=== PATIENT | male | born 1940 | race Caucasian/White ===

== ENCOUNTER → 2018-06-24 | Outpatient (CLI) | payer MEDICARE, BC ==
[~2018-06-24] MED LIST: ASPIR 8181 MG; ATENOLOL50 MG; FLOMAX0.4 MG; GABAPENTIN300 MG; KLOR-CON 1010 MEQ; LASIX40 MG; LIPITOR40 MG; MOBIC7.5 MG; OMEPRAZOLE20 MG; PLAVIX75 MG; QUALAQUIN324 MG; TRICOR48 MG; ZOLOFT50 MG
--- NOTE | 2018-06-24 13:27 | Diagnostic Imaging Report ---
PROCEDURE: RENAL DOPPLER ULTRASOUND COMPARISON:None. INDICATIONS:CKD STAGE 3 FINDINGS: Limited exam secondary to body habitus. Multiple sagittal and axial images of the right and left kidneys were obtained. RIGHT KIDNEY: The right kidney measures 11.5 x 6.3 x 5.8 cm. The cortical thickness is 1.9 cm. The right kidney has normal echogenicity. There are no masses, hydronephrosis or calculi. The highest right main renal artery PSV is 120 cm/sec. The highest right hilar artery PSV is 132cm/sec. LEFT KIDNEY: The left kidney measures 9.1 x 4.9 x 3.6 cm. The cortical thickness is 1.7 cm. The left kidney has increased echogenicity. There are no masses, hydronephrosis or calculi. The highest left main renal artery PSV is 128 cm/sec. The highest left hilar artery PSV is 44 cm/sec. The abdominal aorta PSV is 41.6 cm/sec. The right renal artery/aorta ratio is 2.8. The left renal artery/aorta ratio is 3.1. There is delayed systolic upstroke in the segmental artery waveforms. The right and left renal veins are patent. The bladder is unremarkable. Right ureteral jet noted. Left ureteral jet not visualized. CONCLUSION: 1. Increased left renal echogenicity suggestive medical renal disease. 2. Elevated left renal artery/aorta ratio and delayed systolic upstroke in the segmental arteries may reflect a degree of stenosis. Dictated by: Vincent Aguayo M.D. on 06/24/2018 at 13:32 Electronically approved by: Vincent Aguayo M.D. on 06/24/2018 at 13:32
--- NOTE | 2018-06-24 13:28 | Diagnostic Imaging Report ---
PROCEDURE:US RETROPERITONEAL ( KIDNEY ). COMPARISON:None. INDICATIONS:CKD STAGE 3 TECHNIQUE:Ultrasound examination was performed of the kidneys and bladder. FINDINGS: Please refer to same day US renal Doppler for full report. CONCLUSION: Please refer to same day US renal Doppler for full report. DICTATED BY: LISA HINES M.D. ON 06/24/2018 AT 13:32 ELECTRONICALLY APPROVED BY: LISA HINES M.D. ON 06/24/2018 AT 13:32
== END ==
LOC: US 10:55
PROVIDERS: ATTEND Internal Medicine Nephrology
DX: N18.3 Chronic kidney disease, stage 3 (moderate) (principal)
CPT/HCPCS: 76770; 93976

== ENCOUNTER → 2021-05-16 | Outpatient (CLI) | payer MEDICARE, BC | LOC: RAD 13:05 | PROVIDERS: ATTEND Family Medicine Adult Medicine | DX: I87.2 Venous insufficiency (chronic) (peripheral) (principal) | CPT/HCPCS: 93970 ==

== ENCOUNTER 2021-05-19 09:26 | Outpatient (RCR) | payer MEDICARE, BC ==
[~2021-05-19 09:26] MED LIST changes: +FLUOCINONIDE 0.05% 1 EA/15 GM TUBE ONE; +LIDOCAINE VISC 2% SOLN 15 ML UDC ONE; +LIDOCAINE/PRILOCAINE 2.5-2.5% KIT ONE; +MINERAL OIL/PETROLAT/GLYCERI 6OZ BTL ONE; +TRIAMCINOLONE ACET 0.1% CREAM 15 GM TUBE ONE
== END 2021-05-21 ==
LOC: WCC 09:26
PROVIDERS: ATTEND Family Medicine Adult Medicine
DX: E11.22 Type 2 diabetes mellitus with diabetic chronic kidney disease (principal); E11.628 Type 2 diabetes mellitus with other skin complications; S81.002A Unspecified open wound, left knee, initial encounter; L97.821 Non-pressure chronic ulcer of other part of left lower leg limited to breakdown of skin; L97.811 Non-pressure chronic ulcer of other part of right lower leg limited to breakdown of skin; I83.11 Varicose veins of right lower extremity with inflammation; I83.12 Varicose veins of left lower extremity with inflammation; I89.0 Lymphedema, not elsewhere classified; R60.0 Localized edema; S80.821A Blister (nonthermal), right lower leg, initial encounter; N18.30 Chronic kidney disease, stage 3 unspecified; I10 Essential (primary) hypertension; G99.0 Autonomic neuropathy in diseases classified elsewhere; I46.2 Cardiac arrest due to underlying cardiac condition; I50.32 Chronic diastolic (congestive) heart failure; E03.9 Hypothyroidism, unspecified; J44.9 Chronic obstructive pulmonary disease, unspecified; G47.33 Obstructive sleep apnea (adult) (pediatric); E66.3 Overweight; X58.XXXA Exposure to other specified factors, initial encounter

== ENCOUNTER 2021-06-20 15:34 | Outpatient (RCR) | payer MEDICARE, BC ==
[~2021-06-20 15:34] MED LIST changes: -LIDOCAINE/PRILOCAINE 2.5-2.5% KIT ONE; -TRIAMCINOLONE ACET 0.1% CREAM 15 GM TUBE ONE
== END 2021-06-21 ==
LOC: WCC 15:34
PROVIDERS: ATTEND Family Medicine Adult Medicine
DX: E11.22 Type 2 diabetes mellitus with diabetic chronic kidney disease (principal); E11.628 Type 2 diabetes mellitus with other skin complications; I83.11 Varicose veins of right lower extremity with inflammation; I83.12 Varicose veins of left lower extremity with inflammation; I89.0 Lymphedema, not elsewhere classified; R60.0 Localized edema; L97.811 Non-pressure chronic ulcer of other part of right lower leg limited to breakdown of skin; L97.221 Non-pressure chronic ulcer of left calf limited to breakdown of skin; L97.821 Non-pressure chronic ulcer of other part of left lower leg limited to breakdown of skin; N18.30 Chronic kidney disease, stage 3 unspecified; I10 Essential (primary) hypertension; G99.0 Autonomic neuropathy in diseases classified elsewhere; I46.2 Cardiac arrest due to underlying cardiac condition; I50.32 Chronic diastolic (congestive) heart failure; G47.33 Obstructive sleep apnea (adult) (pediatric); J44.9 Chronic obstructive pulmonary disease, unspecified; E03.9 Hypothyroidism, unspecified; E66.3 Overweight; X58.XXXA Exposure to other specified factors, initial encounter
CPT/HCPCS: 36415; 82947; 82948

== ENCOUNTER 2021-06-24 10:43 | Outpatient (RCR) | payer MEDICARE, BC ==
[~2021-06-24 10:43] MED LIST changes: -FLUOCINONIDE 0.05% 1 EA/15 GM TUBE ONE; -LIDOCAINE VISC 2% SOLN 15 ML UDC ONE; -MINERAL OIL/PETROLAT/GLYCERI 6OZ BTL ONE
[2021-06-24] MEDS ORDERED: LIDOCAINE/PRILOCAINE 2.5-2.5% KIT ONE (12:52)
[2021-06-24] MEDS ORDERED: MINERAL OIL/PETROLAT/GLYCERI 2OZ CRM ONE (12:52)
== END 2021-07-22 ==
LOC: WCC 10:43
PROVIDERS: ATTEND Family Medicine Adult Medicine
DX: E11.22 Type 2 diabetes mellitus with diabetic chronic kidney disease (principal); E11.628 Type 2 diabetes mellitus with other skin complications; L97.821 Non-pressure chronic ulcer of other part of left lower leg limited to breakdown of skin; S81.801A Unspecified open wound, right lower leg, initial encounter; I83.12 Varicose veins of left lower extremity with inflammation; I83.11 Varicose veins of right lower extremity with inflammation; I89.0 Lymphedema, not elsewhere classified; R60.0 Localized edema; N18.30 Chronic kidney disease, stage 3 unspecified; I10 Essential (primary) hypertension; G99.0 Autonomic neuropathy in diseases classified elsewhere; E03.9 Hypothyroidism, unspecified; E66.3 Overweight; G47.33 Obstructive sleep apnea (adult) (pediatric); I46.2 Cardiac arrest due to underlying cardiac condition; I50.32 Chronic diastolic (congestive) heart failure; J44.9 Chronic obstructive pulmonary disease, unspecified; W45.8XXA Other foreign body or object entering through skin, initial encounter; X58.XXXA Exposure to other specified factors, initial encounter

== ENCOUNTER 2022-10-30 09:26 | Inpatient (IN) | payer MEDICARE, BC ==
[~2022-10-30] VITALS: Ht 170.2 cm; Wt 122.5 kg
[~2022-10-30 09:26] MED LIST changes: -KLOR-CON 1010 MEQ; +KLOR-CON 1010 MEQ PO; -LASIX40 MG; +LASIX40 MG PO; -LIPITOR40 MG; +LIPITOR40 MG PO; -PLAVIX75 MG; +PLAVIX75 MG PO; -ZOLOFT50 MG; +ZOLOFT50 MG PO
[2022-10-30 10:14] LABS: BASOPHILS % 0.5 % (0.0-1.0); EOSINOPHILS # (AUTO) 0.2 (0.0-0.4); HEMATOCRIT 27.8 % (38.2-49.6); HEMOGLOBIN 9.5 g/dL (14.0-18.0); LYMPHOCYTES # (AUTO) 1.4 (1.0-3.2); MEAN CORPUSCULAR HEMOGLOBIN 34.9 pg (28-32); MEAN CORPUSCULAR HGB CONC 34.2 g/dL (31-35); MEAN CORPUSCULAR VOLUME 102.2 fL (81-99); MONOCYTES # (AUTO) 0.5 (0.2-0.8); MONOCYTES % 8.6 % (4.4-11.3); NEUTROPHILS # (AUTO) 3.5 (2.1-6.9); PLATELET COUNT 207 x10e3/uL (140-360); RED BLOOD COUNT 2.72 x10e6/uL (4.3-5.7); RED CELL DISTRIBUTION WIDTH 15.6 % (11.7-14.4)
[2022-10-30 10:25] LABS: INR 1.13; PROTHROMBIN TIME 14.7 seconds (11.9-14.5)
[2022-10-30 10:36] LABS: ALBUMIN 3.1 g/dL (3.5-5.0); ALBUMIN/GLOBULIN RATIO 0.9 (0.8-2.0); ANION GAP 15.8 mmol/L (8-16); CALCIUM 8.7 mg/dL (8.4-10.2); CREATININE, SERUM 1.94 mg/dL (0.72-1.25); MAGNESIUM 1.8 MG/DL (1.3-2.1); POTASSIUM 3.8 mmol/L (3.5-5.1)
[2022-10-30 10:42] LABS: CREATINE KINASE MB 2.4 ng/mL (0-5.0)
[2022-10-30] MEDS ORDERED: Vancomycin IV 1 GM in SODIUM CHLORIDE 0.9% 250ML 250 ML IV ONE (11:00)
[2022-10-30] MEDS ORDERED: ONDANSETRON HCL INJ 2MG/ML 2ML 2 MG/ML VIAL IV PRN (11:45)
[2022-10-30] MEDS ORDERED: FUROSEMIDE INJ 10 MG/ML 4 ML VIAL IV ONE (12:00)
[2022-10-30 12:45] VITALS: BP 152/54
[2022-10-30 15:37] VITALS: BP 130/55
[2022-10-30] MEDS ORDERED: ALPRAZOLAM0.5 MG PO (15:57)
[2022-10-30] MEDS ORDERED: TOUJEO MAX300 UNIT/1 (15:57)
[2022-10-30] MEDS ORDERED: SERTRALINE HCL100 MG PO (15:57)
[2022-10-30] MEDS ORDERED: PROTONIX20 MG PO (15:57)
[2022-10-30] MEDS ORDERED: MIRAPEX0.25 MG PO (15:57)
[2022-10-30] MEDS ORDERED: FINASTERIDE5 MG PO (15:57)
[2022-10-30] MEDS ORDERED: METOPROLOL SUCC50 MG PO (15:57)
[2022-10-30] MEDS ORDERED: AMIODARONE HCL200 MG PO (15:57)
[2022-10-30] MEDS ORDERED: LEVOTHYROXINE50 MCG PO (15:57)
[2022-10-30] MEDS ORDERED: [UNRECOGNIZED DRUG - OTHER] (15:57)
[2022-10-30] MEDS ORDERED: SYMBICORT 16010.2 GM INH (15:57)
[2022-10-30] MEDS ORDERED: ENTRESTO 24 MG1 EACH PO (15:57)
[2022-10-30] MEDS ORDERED: COLLAGENASE 5 GM TUBE TP SCH (16:30)
[2022-10-30] MEDS ORDERED: DEXTROSE 50% SYRINGE 50 ML IV PRN (16:30)
[2022-10-30] MEDS: INSULIN LISPRO 100 UNIT/1 ML 3ML VIAL SQ SCH ×3 (17:00→21:00)
[2022-10-30] MEDS ORDERED: SODIUM CHLORIDE 0.9% 250ML 250 ML ONE (17:39)
[2022-10-30 18:55] LABS: CREATINE KINASE MB 2.2 ng/mL (0-5.0)
[2022-10-30] MEDS: BUDESONIDE/FORMOTEROL 160/4.5MCG INHALER INH SCH (19:00)
[2022-10-30 19:15] VITALS: BP 128/88
[2022-10-30] MEDS ORDERED: POTASSIUM CHLORIDE 20 MEQ PO SCH (21:00)
[2022-10-30] MEDS ORDERED: NON-FORMULARY MEDICATION (Atorvastatin Calcium (Lipitor) 40 MG) PO SCH (21:00)
[2022-10-30] MEDS: PRAMIPEXOLE DIHYDROCHLORIDE 0.25 MG TAB PO SCH (22:06)
[2022-10-30] MEDS: ATORVASTATIN 40 MG TAB PO SCH (22:07)
[2022-10-30] MEDS: POTASSIUM CHLORIDE 20 MEQ TAB CR PO SCH (22:07)
[2022-10-30] MEDS: VALSARTAN/SACUBITRIL 24MG/26MG 1 EA TAB PO SCH (22:08)
[2022-10-30] MEDS: ALPRAZOLAM 0.5 MG TAB PO PRN (22:08)
[2022-10-30] MEDS: COLLAGENASE 5 GM TUBE TP SCH (22:27)
[2022-10-31] VITALS (9 sets, daily range): BP systolic 111–128; BP diastolic 46–83
[2022-10-31] MEDS: LEVOTHYROXINE SODIUM 50 MCG TAB PO SCH (05:49)
[2022-10-31 07:08] LABS: BASOPHILS % 0.6 % (0.0-1.0); EOSINOPHILS # (AUTO) 0.2 (0.0-0.4); EOSINOPHILS % 4.5 % (0.0-6.0); HEMATOCRIT 27.7 % (38.2-49.6); HEMOGLOBIN 9.5 g/dL (14.0-18.0); LYMPHOCYTES # (AUTO) 1.3 (1.0-3.2); LYMPHOCYTES % 23.5 % (18.0-39.1); MEAN CORPUSCULAR HEMOGLOBIN 35.1 pg (28-32); MEAN CORPUSCULAR HGB CONC 34.3 g/dL (31-35); MEAN CORPUSCULAR VOLUME 102.2 fL (81-99); MONOCYTES # (AUTO) 0.5 (0.2-0.8); MONOCYTES % 9.8 % (4.4-11.3); NEUTROPHILS # (AUTO) 3.2 (2.1-6.9); NEUTROPHILS % 60.7 % (38.7-80.0); PLATELET COUNT 202 x10e3/uL (140-360); RED BLOOD COUNT 2.71 x10e6/uL (4.3-5.7); RED CELL DISTRIBUTION WIDTH 15.6 % (11.7-14.4)
[2022-10-31] MEDS: INSULIN LISPRO 100 UNIT/1 ML 3ML VIAL SQ SCH ×5 (07:30→19:58)
[2022-10-31 07:36] LABS: ALBUMIN 2.7 g/dL (3.5-5.0); ALBUMIN/GLOBULIN RATIO 0.8 (0.8-2.0); ANION GAP 13.5 mmol/L (8-16); CALCIUM 8.7 mg/dL (8.4-10.2); CREATININE, SERUM 1.73 mg/dL (0.72-1.25); POTASSIUM 3.5 mmol/L (3.5-5.1)
[2022-10-31 08:11] LABS: CREATINE KINASE MB 1.5 ng/mL (0-5.0)
[2022-10-31] MEDS ORDERED: SERTRALINE HCL 50 MG TAB PO SCH (09:00)
[2022-10-31] MEDS ORDERED: NON-FORMULARY MEDICATION (Sacubitril/Valsartan (Entresto 24 mg-26 mg Tablet) 1 TAB) PO SCH (09:00)
[2022-10-31] MEDS: Vancomycin IV 1 GM in SODIUM CHLORIDE 0.9% 250ML 250 ML IV SCH (09:09)
[2022-10-31] MEDS: SERTRALINE HCL 100 MG TAB PO SCH (09:09)
[2022-10-31] MEDS: PANTOPRAZOLE SOD 40 MG TABEC PO SCH (09:10)
[2022-10-31] MEDS: CLOPIDOGREL BISULFATE 75 MG TAB PO SCH (09:10)
[2022-10-31] MEDS: METOPROLOL SUCCINATE 50 MG TAB XL PO SCH ×2 (09:10→16:36)
[2022-10-31] MEDS: VALSARTAN/SACUBITRIL 24MG/26MG 1 EA TAB PO SCH ×2 (09:10→19:58)
[2022-10-31] MEDS: FINASTERIDE 5 MG TAB PO SCH (09:10)
[2022-10-31] MEDS: AMIODARONE HCL 200 MG TAB PO SCH (09:10)
[2022-10-31] MEDS: FUROSEMIDE 40 MG TAB PO SCH ×2 (09:10→16:36)
[2022-10-31] MEDS: BUDESONIDE/FORMOTEROL 160/4.5MCG INHALER INH SCH ×2 (10:30→19:50)
[2022-10-31] MEDS: COLLAGENASE 5 GM TUBE TP SCH (11:29)
[2022-10-31 14:50] LABS: CREATINE KINASE MB 1.3 ng/mL (0-5.0)
[2022-10-31] MEDS: PRAMIPEXOLE DIHYDROCHLORIDE 0.25 MG TAB PO SCH (19:58)
[2022-10-31] MEDS: POTASSIUM CHLORIDE 20 MEQ TAB CR PO SCH (19:59)
[2022-10-31] MEDS: Morphine 2mg Syringe 2 MG/ML SYR IV PRN (20:04)
[2022-10-31] MEDS: ATORVASTATIN 40 MG TAB PO SCH (20:10)
[2022-10-31] MEDS: ALPRAZOLAM 0.5 MG TAB PO PRN (20:10)
[2022-11-01] VITALS (9 sets, daily range): BP systolic 120–138; BP diastolic 49–98
[2022-11-01] MEDS: Morphine 2mg Syringe 2 MG/ML SYR IV PRN (04:46)
[2022-11-01] MEDS: LEVOTHYROXINE SODIUM 50 MCG TAB PO SCH (05:56)
[2022-11-01 05:57] LABS: ANION GAP 18.3 mmol/L (8-16); CALCIUM 9.3 mg/dL (8.4-10.2); CREATININE, SERUM 1.73 mg/dL (0.72-1.25); POTASSIUM 4.3 mmol/L (3.5-5.1)
[2022-11-01] MEDS: PANTOPRAZOLE SOD 40 MG TABEC PO SCH (08:12)
[2022-11-01] MEDS: FINASTERIDE 5 MG TAB PO SCH (08:13)
[2022-11-01] MEDS: CLOPIDOGREL BISULFATE 75 MG TAB PO SCH (08:13)
[2022-11-01] MEDS: FUROSEMIDE 40 MG TAB PO SCH ×2 (08:13→16:50)
[2022-11-01] MEDS: SERTRALINE HCL 100 MG TAB PO SCH (08:13)
[2022-11-01] MEDS: AMIODARONE HCL 200 MG TAB PO SCH (08:13)
[2022-11-01] MEDS: VALSARTAN/SACUBITRIL 24MG/26MG 1 EA TAB PO SCH ×2 (08:13→20:17)
[2022-11-01] MEDS: METOPROLOL SUCCINATE 50 MG TAB XL PO SCH ×2 (08:14→16:51)
[2022-11-01] MEDS: INSULIN LISPRO 100 UNIT/1 ML 3ML VIAL SQ SCH ×4 (08:16→20:16)
[2022-11-01] MEDS: Vancomycin IV 1 GM in SODIUM CHLORIDE 0.9% 250ML 250 ML IV SCH ×2 (10:43→10:48)
[2022-11-01] MEDS ORDERED: METHYLPREDNISOLONE SOD SUCC 40 MG/ML VIAL 1ML IV NR (10:45)
[2022-11-01] MEDS: HYDROCODONE/APAP 5MG-325MG TAB PO PRN ×2 (10:46→18:11)
[2022-11-01] MEDS: CEFTRIAXONE 2 GM in SODIUM CHLORIDE 0.9% 100 ML IV SCH (10:56)
[2022-11-01] MEDS: BUDESONIDE/FORMOTEROL 160/4.5MCG INHALER INH SCH ×2 (11:03→19:30)
[2022-11-01] MEDS: COLLAGENASE 5 GM TUBE TP SCH (11:52)
[2022-11-01] MEDS: ATORVASTATIN 40 MG TAB PO SCH (20:17)
[2022-11-01] MEDS: POTASSIUM CHLORIDE 20 MEQ TAB CR PO SCH (20:17)
[2022-11-01] MEDS: PRAMIPEXOLE DIHYDROCHLORIDE 0.25 MG TAB PO SCH (20:17)
[2022-11-01] MEDS: ALPRAZOLAM 0.5 MG TAB PO PRN (23:46)
[2022-11-02] VITALS (8 sets, daily range): BP systolic 111–140; BP diastolic 50–76
[2022-11-02 05:52] LABS: BASOPHILS % 0.1 % (0.0-1.0); HEMATOCRIT 29.1 % (38.2-49.6); HEMOGLOBIN 9.9 g/dL (14.0-18.0); LYMPHOCYTES # (AUTO) 0.9 (1.0-3.2); LYMPHOCYTES % 11.3 % (18.0-39.1); MEAN CORPUSCULAR HEMOGLOBIN 34.9 pg (28-32); MEAN CORPUSCULAR VOLUME 102.5 fL (81-99); MONOCYTES # (AUTO) 0.4 (0.2-0.8); MONOCYTES % 5.1 % (4.4-11.3); NEUTROPHILS # (AUTO) 6.7 (2.1-6.9); PLATELET COUNT 206 x10e3/uL (140-360); RED BLOOD COUNT 2.84 x10e6/uL (4.3-5.7); RED CELL DISTRIBUTION WIDTH 15.6 % (11.7-14.4)
[2022-11-02] MEDS: LEVOTHYROXINE SODIUM 50 MCG TAB PO SCH (06:17)
[2022-11-02 06:18] LABS: ALBUMIN 2.9 g/dL (3.5-5.0); ALBUMIN/GLOBULIN RATIO 0.7 (0.8-2.0); ANION GAP 16.4 mmol/L (8-16); CALCIUM 8.9 mg/dL (8.4-10.2); CREATININE, SERUM 1.66 mg/dL (0.72-1.25); POTASSIUM 4.4 mmol/L (3.5-5.1)
[2022-11-02] MEDS: INSULIN LISPRO 100 UNIT/1 ML 3ML VIAL SQ SCH ×4 (07:30→21:38)
[2022-11-02] MEDS: CEFTRIAXONE 2 GM in SODIUM CHLORIDE 0.9% 100 ML IV SCH (08:16)
[2022-11-02] MEDS: Vancomycin IV 1 GM in SODIUM CHLORIDE 0.9% 250ML 250 ML IV SCH (08:16)
[2022-11-02] MEDS: FINASTERIDE 5 MG TAB PO SCH (08:17)
[2022-11-02] MEDS: PANTOPRAZOLE SOD 40 MG TABEC PO SCH (08:17)
[2022-11-02] MEDS: SERTRALINE HCL 100 MG TAB PO SCH (08:17)
[2022-11-02] MEDS: AMIODARONE HCL 200 MG TAB PO SCH (08:17)
[2022-11-02] MEDS: CLOPIDOGREL BISULFATE 75 MG TAB PO SCH (08:17)
[2022-11-02] MEDS: FUROSEMIDE 40 MG TAB PO SCH ×2 (08:17→16:39)
[2022-11-02] MEDS: METOPROLOL SUCCINATE 50 MG TAB XL PO SCH ×2 (08:19→16:40)
[2022-11-02] MEDS: VALSARTAN/SACUBITRIL 24MG/26MG 1 EA TAB PO SCH ×2 (08:19→21:32)
[2022-11-02] MEDS: COLLAGENASE 5 GM TUBE TP SCH (09:00)
[2022-11-02] MEDS ORDERED: ONDANSETRON HCL 4 MG ORAL DISINTEGRATING TAB PO PRN (10:45)
[2022-11-02] MEDS: BUDESONIDE/FORMOTEROL 160/4.5MCG INHALER INH SCH (19:20)
[2022-11-02] MEDS: HYDROCODONE/APAP 5MG-325MG TAB PO PRN (20:23)
[2022-11-02] MEDS: ATORVASTATIN 40 MG TAB PO SCH (21:32)
[2022-11-02] MEDS: PRAMIPEXOLE DIHYDROCHLORIDE 0.25 MG TAB PO SCH (21:34)
[2022-11-02] MEDS: POTASSIUM CHLORIDE 20 MEQ TAB CR PO SCH (21:34)
[2022-11-02] MEDS: ALPRAZOLAM 0.5 MG TAB PO PRN (23:00)
[2022-11-03] VITALS (8 sets, daily range): BP systolic 125–138; BP diastolic 48–68
[2022-11-03] MEDS: LEVOTHYROXINE SODIUM 50 MCG TAB PO SCH (05:18)
[2022-11-03] MEDS: BUDESONIDE/FORMOTEROL 160/4.5MCG INHALER INH SCH ×2 (06:22→19:40)
[2022-11-03] MEDS: PANTOPRAZOLE SOD 40 MG TABEC PO SCH (08:30)
[2022-11-03] MEDS: INSULIN LISPRO 100 UNIT/1 ML 3ML VIAL SQ SCH ×4 (08:30→21:33)
[2022-11-03] MEDS: METOPROLOL SUCCINATE 50 MG TAB XL PO SCH ×2 (09:00→17:20)
[2022-11-03] MEDS: CEFTRIAXONE 2 GM in SODIUM CHLORIDE 0.9% 100 ML IV SCH (10:00)
[2022-11-03] MEDS: COLLAGENASE 5 GM TUBE TP SCH (10:00)
[2022-11-03] MEDS: VALSARTAN/SACUBITRIL 24MG/26MG 1 EA TAB PO SCH ×2 (10:00→21:27)
[2022-11-03] MEDS: FUROSEMIDE 40 MG TAB PO SCH ×2 (10:01→17:20)
[2022-11-03] MEDS: FINASTERIDE 5 MG TAB PO SCH (10:01)
[2022-11-03] MEDS: SERTRALINE HCL 100 MG TAB PO SCH (10:01)
[2022-11-03] MEDS: AMIODARONE HCL 200 MG TAB PO SCH (10:01)
[2022-11-03] MEDS: CLOPIDOGREL BISULFATE 75 MG TAB PO SCH (10:01)
[2022-11-03] MEDS: Vancomycin IV 1 GM in SODIUM CHLORIDE 0.9% 250ML 250 ML IV SCH (13:08)
[2022-11-03] MEDS: PRAMIPEXOLE DIHYDROCHLORIDE 0.25 MG TAB PO SCH (21:27)
[2022-11-03] MEDS: ATORVASTATIN 40 MG TAB PO SCH (21:27)
[2022-11-03] MEDS: POTASSIUM CHLORIDE 20 MEQ TAB CR PO SCH (21:28)
[2022-11-03] MEDS ORDERED: DIPHENOXYLATE/ATROPINE TAB PO ONE (22:30)
[2022-11-04] VITALS (9 sets, daily range): BP systolic 125–135; BP diastolic 47–95
[2022-11-04] MEDS: ALPRAZOLAM 0.5 MG TAB PO PRN (00:09)
[2022-11-04] MEDS: LEVOTHYROXINE SODIUM 50 MCG TAB PO SCH (05:28)
[2022-11-04] MEDS: BUDESONIDE/FORMOTEROL 160/4.5MCG INHALER INH SCH ×3 (08:56→19:25)
[2022-11-04] MEDS: CHOLESTYRAMINE 4 GM PACKET PO SCH ×2 (10:21→17:38)
[2022-11-04] MEDS: AMIODARONE HCL 200 MG TAB PO SCH (10:23)
[2022-11-04] MEDS: CLOPIDOGREL BISULFATE 75 MG TAB PO SCH (10:24)
[2022-11-04] MEDS: FINASTERIDE 5 MG TAB PO SCH (10:24)
[2022-11-04] MEDS: METOPROLOL SUCCINATE 50 MG TAB XL PO SCH ×2 (10:24→17:38)
[2022-11-04] MEDS: FUROSEMIDE 40 MG TAB PO SCH ×2 (10:24→17:38)
[2022-11-04] MEDS: PANTOPRAZOLE SOD 40 MG TABEC PO SCH (10:24)
[2022-11-04] MEDS: CEFTRIAXONE 2 GM in SODIUM CHLORIDE 0.9% 100 ML IV SCH (10:25)
[2022-11-04] MEDS: Vancomycin IV 1 GM in SODIUM CHLORIDE 0.9% 250ML 250 ML IV SCH (10:25)
[2022-11-04] MEDS: COLLAGENASE 5 GM TUBE TP SCH (10:32)
[2022-11-04] MEDS: SERTRALINE HCL 100 MG TAB PO SCH (10:32)
[2022-11-04] MEDS: VALSARTAN/SACUBITRIL 24MG/26MG 1 EA TAB PO SCH ×2 (10:32→21:43)
[2022-11-04] MEDS: INSULIN LISPRO 100 UNIT/1 ML 3ML VIAL SQ SCH ×4 (11:06→21:48)
[2022-11-04] MEDS: POTASSIUM CHLORIDE 20 MEQ TAB CR PO SCH (21:44)
[2022-11-04] MEDS: PRAMIPEXOLE DIHYDROCHLORIDE 0.25 MG TAB PO SCH (21:44)
[2022-11-04] MEDS: ATORVASTATIN 40 MG TAB PO SCH (21:44)
[2022-11-05] MEDS: ALPRAZOLAM 0.5 MG TAB PO PRN (00:51)
[2022-11-05 03:48] VITALS: BP 132/53
[2022-11-05] MEDS: LEVOTHYROXINE SODIUM 50 MCG TAB PO SCH (06:16)
[2022-11-05] MEDS: BUDESONIDE/FORMOTEROL 160/4.5MCG INHALER INH SCH ×2 (07:00→09:35)
[2022-11-05 08:00] VITALS: BP 135/61
[2022-11-05 08:08] VITALS: BP 135/61
[2022-11-05] MEDS: CHOLESTYRAMINE 4 GM PACKET PO SCH (09:00)
[2022-11-05] MEDS: SERTRALINE HCL 100 MG TAB PO SCH (09:18)
[2022-11-05] MEDS: FINASTERIDE 5 MG TAB PO SCH (09:18)
[2022-11-05] MEDS: CLOPIDOGREL BISULFATE 75 MG TAB PO SCH (09:18)
[2022-11-05] MEDS: METOPROLOL SUCCINATE 50 MG TAB XL PO SCH (09:19)
[2022-11-05] MEDS: VALSARTAN/SACUBITRIL 24MG/26MG 1 EA TAB PO SCH (09:19)
[2022-11-05] MEDS: PANTOPRAZOLE SOD 40 MG TABEC PO SCH (09:19)
[2022-11-05] MEDS: AMIODARONE HCL 200 MG TAB PO SCH (09:19)
[2022-11-05] MEDS: FUROSEMIDE 40 MG TAB PO SCH (09:19)
[2022-11-05] MEDS: Vancomycin IV 1 GM in SODIUM CHLORIDE 0.9% 250ML 250 ML IV SCH (09:20)
[2022-11-05] MEDS: CEFTRIAXONE 2 GM in SODIUM CHLORIDE 0.9% 100 ML IV SCH (09:20)
[2022-11-05] MEDS: INSULIN LISPRO 100 UNIT/1 ML 3ML VIAL SQ SCH ×2 (09:33→11:30)
[2022-11-05] MEDS: COLLAGENASE 5 GM TUBE TP SCH (10:11)
[2022-11-05] MEDS ORDERED: DOXYCYCLINE HY100 MG PO (11:19)
== END 2022-11-05 12:31 | disposition home health service (06) | DRG 300 ==
LOC: ER 09:59 → ERHOLD 11:51 → MED/SURG2 12:43
PROVIDERS: ADMIT Family Medicine; ATTEND Family Medicine
PROC: 02HV33Z Insertion of Infusion Device into Superior Vena Cava, Percutaneous Approach (ICD-10-PCS; principal; 2022-10-30)
DX: E11.51 Type 2 diabetes mellitus with diabetic peripheral angiopathy without gangrene (principal); I13.0 Hypertensive heart and chronic kidney disease with heart failure and stage 1 through stage 4 chronic kidney disease, or unspecified chronic kidney disease; L03.115 Cellulitis of right lower limb; Z68.41 Body mass index [BMI] 40.0-44.9, adult; L03.116 Cellulitis of left lower limb; I50.22 Chronic systolic (congestive) heart failure; I83.218 Varicose veins of right lower extremity with both ulcer of other part of lower extremity and inflammation; I83.228 Varicose veins of left lower extremity with both ulcer of other part of lower extremity and inflammation; L97.828 Non-pressure chronic ulcer of other part of left lower leg with other specified severity; I87.2 Venous insufficiency (chronic) (peripheral); E66.01 Morbid (severe) obesity due to excess calories; E03.9 Hypothyroidism, unspecified; E11.69 Type 2 diabetes mellitus with other specified complication; E78.5 Hyperlipidemia, unspecified; I25.10 Atherosclerotic heart disease of native coronary artery without angina pectoris; E11.22 Type 2 diabetes mellitus with diabetic chronic kidney disease; Z79.4 Long term (current) use of insulin; I48.0 Paroxysmal atrial fibrillation; Z79.01 Long term (current) use of anticoagulants; N18.32 Chronic kidney disease, stage 3b
CPT/HCPCS: 36415; 36569; 71045; 80048; 80053; 80202; 82550; 82553; 82948; 83735; 83880; 84484; 85025; 85610; 85730; 87040; 93005; 93306; 94664; 94799; 96360; 96372; 99251; 99284; J0696; J1940; J2270; J2543; J2920; J3370; J7050

== ENCOUNTER 2023-01-15 18:14 | Inpatient (IN) | payer MEDICARE, BC ==
[~2023-01-15] VITALS: Ht 170.2 cm; Wt 122.5 kg
[~2023-01-15 18:14] MED LIST changes: +ALPRAZOLAM0.5 MG PO; +AMIODARONE HCL200 MG PO; +DOXYCYCLINE HY100 MG PO; +ENTRESTO 24 MG1 EACH PO; +FINASTERIDE5 MG PO; +LEVOTHYROXINE50 MCG PO; +METOPROLOL SUCC50 MG PO; +MIRAPEX0.25 MG PO; +PROTONIX20 MG PO; +SERTRALINE HCL100 MG PO; +SYMBICORT 16010.2 GM INH; +TOUJEO MAX300 UNIT/1; +[UNRECOGNIZED DRUG - OTHER]
[2023-01-15 19:18] LABS: BASOPHILS % 0.4 % (0.0-1.0); EOSINOPHILS # (AUTO) 0.3 (0.0-0.4); EOSINOPHILS % 3.2 % (0.0-6.0); HEMATOCRIT 33.1 % (38.2-49.6); HEMOGLOBIN 10.3 g/dL (14.0-18.0); LYMPHOCYTES # (AUTO) 1.3 (1.0-3.2); LYMPHOCYTES % 15.7 % (18.0-39.1); MEAN CORPUSCULAR HEMOGLOBIN 30.7 pg (28-32); MEAN CORPUSCULAR HGB CONC 31.1 g/dL (31-35); MEAN CORPUSCULAR VOLUME 98.5 fL (81-99); MONOCYTES # (AUTO) 0.7 (0.2-0.8); NEUTROPHILS % 72.2 % (38.7-80.0); PLATELET COUNT 167 x10e3/uL (140-360); RED BLOOD COUNT 3.36 x10e6/uL (4.3-5.7); RED CELL DISTRIBUTION WIDTH 15.9 % (11.7-14.4)
[2023-01-15 19:34] LABS: ALBUMIN 3.4 g/dL (3.5-5.0); ALBUMIN/GLOBULIN RATIO 0.8 (0.8-2.0); ANION GAP 17.6 mmol/L (8-16); CALCIUM 9.3 mg/dL (8.4-10.2); CREATININE, SERUM 2.18 mg/dL (0.72-1.25); POTASSIUM 3.6 mmol/L (3.5-5.1)
[2023-01-15 19:41] LABS: CREATINE KINASE MB 4.1 ng/mL (0-5.0)
[2023-01-15] MEDS ORDERED: DEXTROSE 50% SYRINGE 50 ML IV PRN (20:15)
[2023-01-15] MEDS ORDERED: SODIUM CHLORIDE FLUSH 10 ML SYR INJ PRN (20:15)
[2023-01-15] MEDS: INSULIN REGULAR, HUMAN 100 UNIT/1 ML SQ SCH (21:01)
[2023-01-15] MEDS: FUROSEMIDE INJ 10 MG/ML 4 ML VIAL IV SCH ×2 (21:01→22:30)
[2023-01-16] VITALS (9 sets, daily range): BP systolic 109–141; BP diastolic 47–111
[2023-01-16 07:18] LABS: CREATINE KINASE MB 1.5 ng/mL (0-5.0)
[2023-01-16] MEDS: INSULIN REGULAR, HUMAN 100 UNIT/1 ML SQ SCH ×4 (07:30→21:39)
[2023-01-16] MEDS ORDERED: ALPRAZOLAM 0.5 MG TAB PO PRN (07:30)
[2023-01-16] MEDS: BUDESONIDE/FORMOTEROL 160/4.5MCG INHALER INH SCH ×2 (08:45→17:00)
[2023-01-16] MEDS ORDERED: SERTRALINE HCL 50 MG TAB PO SCH (09:00)
[2023-01-16] MEDS: LEVOTHYROXINE SODIUM 50 MCG TAB PO SCH (09:54)
[2023-01-16] MEDS: FINASTERIDE 5 MG TAB PO SCH (09:54)
[2023-01-16] MEDS: METOPROLOL SUCCINATE 50 MG TAB XL PO SCH ×2 (09:54→17:05)
[2023-01-16] MEDS: AMIODARONE HCL 200 MG TAB PO SCH (09:54)
[2023-01-16] MEDS: POTASSIUM CHLORIDE 20 MEQ TAB CR PO SCH (09:54)
[2023-01-16] MEDS: CLOPIDOGREL BISULFATE 75 MG TAB PO SCH (09:55)
[2023-01-16] MEDS: FUROSEMIDE INJ 10 MG/ML 4 ML VIAL IV SCH ×2 (09:55→21:24)
[2023-01-16] MEDS: VALSARTAN/SACUBITRIL 24MG/26MG 1 EA TAB PO SCH ×2 (09:59→17:05)
[2023-01-16] MEDS: PANTOPRAZOLE SOD 40 MG TABEC PO SCH (09:59)
[2023-01-16] MEDS: SERTRALINE HCL 100 MG TAB PO SCH (10:00)
[2023-01-16 15:51] LABS: CREATINE KINASE MB 1.7 ng/mL (0-5.0)
[2023-01-16] MEDS ORDERED: SODIUM CHLORIDE 0.9% 250ML 250 ML ONE (16:54)
[2023-01-16] MEDS ORDERED: PRAMIPEXOLE DIHYDROCHLORIDE 0.25 MG TAB PO SCH (21:00)
[2023-01-16] MEDS: ATORVASTATIN 40 MG TAB PO SCH (21:26)
[2023-01-17] VITALS (7 sets, daily range): BP systolic 109–135; BP diastolic 47–62
[2023-01-17] MEDS: BUDESONIDE/FORMOTEROL 160/4.5MCG INHALER INH SCH ×2 (07:14→15:27)
[2023-01-17] MEDS: INSULIN REGULAR, HUMAN 100 UNIT/1 ML SQ SCH ×5 (07:30→22:12)
[2023-01-17 08:10] LABS: ANION GAP 13.8 mmol/L (8-16); CALCIUM 8.7 mg/dL (8.4-10.2); CREATININE, SERUM 1.5 mg/dL (0.72-1.25); MAGNESIUM 1.8 MG/DL (1.3-2.1); POTASSIUM 3.8 mmol/L (3.5-5.1)
[2023-01-17 08:41] LABS: CREATINE KINASE MB 1.1 ng/mL (0-5.0)
[2023-01-17] MEDS: VALSARTAN/SACUBITRIL 24MG/26MG 1 EA TAB PO SCH ×2 (09:27→17:43)
[2023-01-17] MEDS: POTASSIUM CHLORIDE 20 MEQ TAB CR PO SCH (09:27)
[2023-01-17] MEDS: AMIODARONE HCL 200 MG TAB PO SCH (09:27)
[2023-01-17] MEDS: PANTOPRAZOLE SOD 40 MG TABEC PO SCH (09:28)
[2023-01-17] MEDS: METOPROLOL SUCCINATE 50 MG TAB XL PO SCH ×2 (09:28→17:43)
[2023-01-17] MEDS: CLOPIDOGREL BISULFATE 75 MG TAB PO SCH (09:28)
[2023-01-17] MEDS: SERTRALINE HCL 100 MG TAB PO SCH (09:28)
[2023-01-17] MEDS: LEVOTHYROXINE SODIUM 50 MCG TAB PO SCH (09:28)
[2023-01-17] MEDS: FINASTERIDE 5 MG TAB PO SCH (09:29)
[2023-01-17] MEDS: FUROSEMIDE INJ 10 MG/ML 4 ML VIAL IV SCH ×2 (09:29→17:44)
[2023-01-17] MEDS ORDERED: NEOMYCIN/POLYMYXIN/BACITRACIN 15 GM TUBE TOP PRN (09:30)
[2023-01-17 09:49] LABS: BASOPHILS % 0.2 % (0.0-1.0); EOSINOPHILS % 0.4 % (0.0-6.0); HEMATOCRIT 32.7 % (38.2-49.6); HEMOGLOBIN 10.4 g/dL (14.0-18.0); LYMPHOCYTES # (AUTO) 1.5 (1.0-3.2); LYMPHOCYTES % 14.1 % (18.0-39.1); MEAN CORPUSCULAR HEMOGLOBIN 31.5 pg (28-32); MEAN CORPUSCULAR HGB CONC 31.8 g/dL (31-35); MEAN CORPUSCULAR VOLUME 99.1 fL (81-99); MONOCYTES # (AUTO) 0.9 (0.2-0.8); MONOCYTES % 8.7 % (4.4-11.3); NEUTROPHILS # (AUTO) 7.8 (2.1-6.9); NEUTROPHILS % 75.9 % (38.7-80.0); PLATELET COUNT 157 x10e3/uL (140-360); RED CELL DISTRIBUTION WIDTH 15.9 % (11.7-14.4)
[2023-01-17] MEDS ORDERED: ALPRAZOLAM 0.25 MG TAB PO PRN (10:00)
[2023-01-17] MEDS: ATORVASTATIN 40 MG TAB PO SCH (21:47)
[2023-01-18] VITALS (8 sets, daily range): BP systolic 115–138; BP diastolic 51–59
[2023-01-18] MEDS: FUROSEMIDE INJ 10 MG/ML 4 ML VIAL IV SCH ×4 (00:21→17:20)
[2023-01-18] MEDS: AMIODARONE HCL 200 MG TAB PO SCH (08:30)
[2023-01-18] MEDS: VALSARTAN/SACUBITRIL 24MG/26MG 1 EA TAB PO SCH ×2 (08:30→17:20)
[2023-01-18] MEDS: METOPROLOL SUCCINATE 50 MG TAB XL PO SCH ×2 (08:30→17:20)
[2023-01-18] MEDS: LEVOTHYROXINE SODIUM 50 MCG TAB PO SCH (08:30)
[2023-01-18] MEDS: PANTOPRAZOLE SOD 40 MG TABEC PO SCH (08:31)
[2023-01-18] MEDS: POTASSIUM CHLORIDE 20 MEQ TAB CR PO SCH (08:31)
[2023-01-18] MEDS: CLOPIDOGREL BISULFATE 75 MG TAB PO SCH (08:31)
[2023-01-18] MEDS: SERTRALINE HCL 100 MG TAB PO SCH (08:31)
[2023-01-18] MEDS: FINASTERIDE 5 MG TAB PO SCH (08:31)
[2023-01-18] MEDS: INSULIN REGULAR, HUMAN 100 UNIT/1 ML SQ SCH ×4 (08:57→21:00)
[2023-01-18] MEDS: BUDESONIDE/FORMOTEROL 160/4.5MCG INHALER INH SCH ×2 (09:00→17:25)
[2023-01-18] MEDS ORDERED: ACETAMINOPHEN 325 MG TAB PO PRN (13:15)
[2023-01-18] MEDS: ATORVASTATIN 40 MG TAB PO SCH (21:34)
[2023-01-19] VITALS (7 sets, daily range): BP systolic 105–132; BP diastolic 51–66
[2023-01-19] MEDS: FUROSEMIDE INJ 10 MG/ML 4 ML VIAL IV SCH ×4 (00:20→16:55)
[2023-01-19] MEDS: INSULIN REGULAR, HUMAN 100 UNIT/1 ML SQ SCH ×4 (07:30→21:35)
[2023-01-19 07:54] LABS: BASOPHILS % 0.1 % (0.0-1.0); EOSINOPHILS # (AUTO) 0.1 (0.0-0.4); HEMOGLOBIN 9.6 g/dL (14.0-18.0); LYMPHOCYTES # (AUTO) 1.1 (1.0-3.2); LYMPHOCYTES % 13.2 % (18.0-39.1); MEAN CORPUSCULAR HEMOGLOBIN 30.4 pg (28-32); MEAN CORPUSCULAR VOLUME 94.9 fL (81-99); MONOCYTES # (AUTO) 0.7 (0.2-0.8); MONOCYTES % 8.7 % (4.4-11.3); NEUTROPHILS # (AUTO) 6.1 (2.1-6.9); NEUTROPHILS % 76.3 % (38.7-80.0); PLATELET COUNT 154 x10e3/uL (140-360); RED BLOOD COUNT 3.16 x10e6/uL (4.3-5.7); RED CELL DISTRIBUTION WIDTH 15.7 % (11.7-14.4)
[2023-01-19 08:18] LABS: ALBUMIN 2.3 g/dL (3.5-5.0); ALBUMIN/GLOBULIN RATIO 0.5 (0.8-2.0); ANION GAP 14.4 mmol/L (8-16); CALCIUM 8.8 mg/dL (8.4-10.2); CREATININE, SERUM 1.37 mg/dL (0.72-1.25); POTASSIUM 3.4 mmol/L (3.5-5.1)
[2023-01-19] MEDS: CLOPIDOGREL BISULFATE 75 MG TAB PO SCH (09:03)
[2023-01-19] MEDS: APIXAB 2.5 MG TABLET PO SCH ×2 (09:03→16:53)
[2023-01-19] MEDS: PANTOPRAZOLE SOD 40 MG TABEC PO SCH (09:04)
[2023-01-19] MEDS: SERTRALINE HCL 100 MG TAB PO SCH (09:04)
[2023-01-19] MEDS: FINASTERIDE 5 MG TAB PO SCH (09:04)
[2023-01-19] MEDS: POTASSIUM CHLORIDE 20 MEQ TAB CR PO SCH (09:04)
[2023-01-19] MEDS: VALSARTAN/SACUBITRIL 24MG/26MG 1 EA TAB PO SCH ×2 (09:04→16:53)
[2023-01-19] MEDS: AMIODARONE HCL 200 MG TAB PO SCH (09:04)
[2023-01-19] MEDS: METOPROLOL SUCCINATE 50 MG TAB XL PO SCH ×2 (09:04→16:53)
[2023-01-19] MEDS: LEVOTHYROXINE SODIUM 50 MCG TAB PO SCH (09:05)
[2023-01-19] MEDS: BUDESONIDE/FORMOTEROL 160/4.5MCG INHALER INH SCH ×2 (10:28→19:35)
[2023-01-19] MEDS: ATORVASTATIN 40 MG TAB PO SCH (21:19)
[2023-01-20] VITALS (8 sets, daily range): BP systolic 100–126; BP diastolic 45–75
[2023-01-20] MEDS: FUROSEMIDE INJ 10 MG/ML 4 ML VIAL IV SCH ×5 (00:24→23:55)
[2023-01-20 06:03] LABS: BASOPHILS % 0.3 % (0.0-1.0); EOSINOPHILS # (AUTO) 0.1 (0.0-0.4); EOSINOPHILS % 1.6 % (0.0-6.0); HEMATOCRIT 28.8 % (38.2-49.6); HEMOGLOBIN 9.3 g/dL (14.0-18.0); LYMPHOCYTES # (AUTO) 1.5 (1.0-3.2); LYMPHOCYTES % 20.2 % (18.0-39.1); MEAN CORPUSCULAR HEMOGLOBIN 30.8 pg (28-32); MEAN CORPUSCULAR HGB CONC 32.3 g/dL (31-35); MEAN CORPUSCULAR VOLUME 95.4 fL (81-99); MONOCYTES # (AUTO) 0.6 (0.2-0.8); MONOCYTES % 8.1 % (4.4-11.3); NEUTROPHILS # (AUTO) 5.3 (2.1-6.9); PLATELET COUNT 176 x10e3/uL (140-360); RED BLOOD COUNT 3.02 x10e6/uL (4.3-5.7); RED CELL DISTRIBUTION WIDTH 15.6 % (11.7-14.4)
[2023-01-20 06:33] LABS: ALBUMIN 2.2 g/dL (3.5-5.0); ALBUMIN/GLOBULIN RATIO 0.5 (0.8-2.0); ANION GAP 16.5 mmol/L (8-16); CALCIUM 8.8 mg/dL (8.4-10.2); CREATININE, SERUM 1.43 mg/dL (0.72-1.25); POTASSIUM 3.5 mmol/L (3.5-5.1)
[2023-01-20] MEDS: INSULIN REGULAR, HUMAN 100 UNIT/1 ML SQ SCH ×4 (08:00→21:42)
[2023-01-20] MEDS: PANTOPRAZOLE SOD 40 MG TABEC PO SCH (08:52)
[2023-01-20] MEDS: APIXAB 2.5 MG TABLET PO SCH ×2 (08:52→16:51)
[2023-01-20] MEDS: POTASSIUM CHLORIDE 20 MEQ TAB CR PO SCH (08:53)
[2023-01-20] MEDS: VALSARTAN/SACUBITRIL 24MG/26MG 1 EA TAB PO SCH ×2 (08:53→16:51)
[2023-01-20] MEDS: AMIODARONE HCL 200 MG TAB PO SCH (08:54)
[2023-01-20] MEDS: LEVOTHYROXINE SODIUM 50 MCG TAB PO SCH (08:54)
[2023-01-20] MEDS: CLOPIDOGREL BISULFATE 75 MG TAB PO SCH (08:54)
[2023-01-20] MEDS: SERTRALINE HCL 100 MG TAB PO SCH (08:55)
[2023-01-20] MEDS: METOPROLOL SUCCINATE 50 MG TAB XL PO SCH ×2 (08:55→16:51)
[2023-01-20] MEDS: FINASTERIDE 5 MG TAB PO SCH (10:44)
[2023-01-20] MEDS: ATORVASTATIN 40 MG TAB PO SCH (21:35)
[2023-01-21 00:03] VITALS: BP 112/70
[2023-01-21 04:10] VITALS: BP 109/70
[2023-01-21] MEDS: FUROSEMIDE INJ 10 MG/ML 4 ML VIAL IV SCH ×2 (05:53→05:59)
[2023-01-21 06:15] LABS: ANION GAP 17.7 mmol/L (8-16); CALCIUM 8.9 mg/dL (8.4-10.2); CREATININE, SERUM 1.73 mg/dL (0.72-1.25); POTASSIUM 3.7 mmol/L (3.5-5.1)
[2023-01-21 07:54] VITALS: BP 111/50
[2023-01-21] MEDS: CLOPIDOGREL BISULFATE 75 MG TAB PO SCH (08:09)
[2023-01-21] MEDS: PANTOPRAZOLE SOD 40 MG TABEC PO SCH (08:09)
[2023-01-21] MEDS: SERTRALINE HCL 100 MG TAB PO SCH (08:09)
[2023-01-21] MEDS: AMIODARONE HCL 200 MG TAB PO SCH (08:09)
[2023-01-21] MEDS: FINASTERIDE 5 MG TAB PO SCH (08:09)
[2023-01-21] MEDS: LEVOTHYROXINE SODIUM 50 MCG TAB PO SCH (08:09)
[2023-01-21] MEDS: VALSARTAN/SACUBITRIL 24MG/26MG 1 EA TAB PO SCH (08:09)
[2023-01-21] MEDS: APIXAB 2.5 MG TABLET PO SCH (08:09)
[2023-01-21] MEDS: METOPROLOL SUCCINATE 50 MG TAB XL PO SCH (08:10)
[2023-01-21] MEDS: POTASSIUM CHLORIDE 20 MEQ TAB CR PO SCH (08:10)
[2023-01-21] MEDS: INSULIN REGULAR, HUMAN 100 UNIT/1 ML SQ SCH ×2 (08:11→11:30)
[2023-01-21 08:17] VITALS: BP 111/50
[2023-01-21 11:24] VITALS: BP 151/78
[2023-01-21] MEDS: BUDESONIDE/FORMOTEROL 160/4.5MCG INHALER INH SCH (11:25)
== END 2023-01-21 13:07 | disposition home or self-care (01) | DRG 291 ==
LOC: ER 18:23 → ERHOLD 20:07 → MED/SURG3 22:31
PROVIDERS: ADMIT Family Medicine; ATTEND Family Medicine
DX: I13.0 Hypertensive heart and chronic kidney disease with heart failure and stage 1 through stage 4 chronic kidney disease, or unspecified chronic kidney disease (principal); I50.23 Acute on chronic systolic (congestive) heart failure; L03.116 Cellulitis of left lower limb; L03.115 Cellulitis of right lower limb; Z68.41 Body mass index [BMI] 40.0-44.9, adult; N17.9 Acute kidney failure, unspecified; I48.20 Chronic atrial fibrillation, unspecified; N18.9 Chronic kidney disease, unspecified; E11.22 Type 2 diabetes mellitus with diabetic chronic kidney disease; Z79.4 Long term (current) use of insulin; I25.10 Atherosclerotic heart disease of native coronary artery without angina pectoris; Z95.1 Presence of aortocoronary bypass graft; E66.01 Morbid (severe) obesity due to excess calories; I25.2 Old myocardial infarction; Z79.01 Long term (current) use of anticoagulants; Z20.822 Contact with and (suspected) exposure to COVID-19; Z74.2 Need for assistance at home and no other household member able to render care; Z79.899 Other long term (current) drug therapy
CPT/HCPCS: 36415; 71045; 80048; 80053; 82550; 82553; 82948; 83735; 83880; 84443; 84484; 85025; 93005; 93306; 93970; 94664; 94799; 99252; 99284; J1940; J7050

== ENCOUNTER 2023-02-17 19:53 | Emergency (ER) | payer MEDICARE, BC ==
[~2023-02-17] VITALS: Ht 170.2 cm; Wt 122.5 kg
[2023-02-17 20:55] LABS: BASOPHILS % 0.4 % (0.0-1.0); EOSINOPHILS # (AUTO) 0.1 (0.0-0.4); EOSINOPHILS % 2.1 % (0.0-6.0); HEMATOCRIT 31.2 % (38.2-49.6); HEMOGLOBIN 9.4 g/dL (14.0-18.0); LYMPHOCYTES # (AUTO) 1.3 (1.0-3.2); LYMPHOCYTES % 18.7 % (18.0-39.1); MEAN CORPUSCULAR HEMOGLOBIN 30.5 pg (28-32); MEAN CORPUSCULAR HGB CONC 30.1 g/dL (31-35); MEAN CORPUSCULAR VOLUME 101.3 fL (81-99); MONOCYTES # (AUTO) 0.5 (0.2-0.8); MONOCYTES % 7.1 % (4.4-11.3); NEUTROPHILS # (AUTO) 4.8 (2.1-6.9); NEUTROPHILS % 71.1 % (38.7-80.0); PLATELET COUNT 174 x10e3/uL (140-360); RED BLOOD COUNT 3.08 x10e6/uL (4.3-5.7); RED CELL DISTRIBUTION WIDTH 17.1 % (11.7-14.4)
[2023-02-17 21:12] LABS: ALBUMIN/GLOBULIN RATIO 0.8 (0.8-2.0); ANION GAP 17.5 mmol/L (8-16); CALCIUM 8.7 mg/dL (8.4-10.2); CREATININE, SERUM 1.46 mg/dL (0.72-1.25); POTASSIUM 4.5 mmol/L (3.5-5.1)
[2023-02-17 21:19] LABS: CREATINE KINASE MB 5.6 ng/mL (0-5.0)
[2023-02-17 21:48] LABS: LIPASE 25 U/L (8-78)
[2023-02-18 00:42] VITALS: BP 137/58
[2023-02-18] MEDS ORDERED: CEPHALEXIN500 MG PO (00:45)
== END 2023-02-18 00:15 | disposition home or self-care (01) ==
LOC: ER 20:08
DX: S51.012A Laceration without foreign body of left elbow, initial encounter (principal); I87.8 Other specified disorders of veins; M25.562 Pain in left knee; I48.91 Unspecified atrial fibrillation; E11.65 Type 2 diabetes mellitus with hyperglycemia; I10 Essential (primary) hypertension; E03.9 Hypothyroidism, unspecified; G47.30 Sleep apnea, unspecified; I25.2 Old myocardial infarction; Z95.1 Presence of aortocoronary bypass graft; R94.31 Abnormal electrocardiogram [ECG] [EKG]
CPT/HCPCS: 36415; 71045; 73522; 80053; 80320; 82550; 82553; 83690; 83880; 84484; 85025; 85379; 93005; 99284